=== PATIENT | female | born 1940 ===

== ENCOUNTER 2016-06-09 17:44 | Emergency (ER) | payer MEDICARE, MEDICAID ==
[2016-06-09 17:51] VITALS: BP 161/69; PULSE 73; RESP 16; TEMP 98; O2SAT 98
--- NOTE | 2016-06-09 18:23 | ED PDOC ---
HPI: General Adult Time Seen by Provider: 06/09/16 18:04 Chief Complaint (Nursing): Back Pain Chief Complaint (Provider): neck pain History Per: Patient History/Exam Limitations: no limitations Onset/Duration Of Symptoms: Days (x3) Current Symptoms Are (Timing): Still Present Severity: Mild Additional Complaint(s): Patient is a 76 year old female, who has a history of neck pain, presents to the ED complaining of neck pain x3 days. Patient reports pain begins at the midline then radiates to chest and is associated with headache. Patient feels stiff and took Tylenol 500 mg today with mild relief. Denies injury. Patient went to physical therapy for her neck 2 months ago. Denies numbness or tingling. 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), HTN, Hypercholesterolemia - Surgical History Surgical History: Cholecystectomy - Family History Family History: States: No Known Family Hx - Home Medications Home Medications: Ambulatory Orders Medication Instructions Recorded ALPRAZolam [Xanax] 0.5 mg PO TID 05/30/15 Aspirin [Ecotrin] 81 mg PO DAILY 05/30/15 Chlorthalidone [Hygroton] 25 mg PO DAILY 05/30/15 Ergocalciferol (Vitamin D2) 50,000 iu PO DAILY 05/30/15 [Vitamin D] Meclizine [Meclizine*] 25 mg PO Q12 PRN #10 tab 05/30/15 Metoprolol Succinate [Toprol XL] 50 mg PO DAILY 05/30/15 Valsartan [Diovan] 320 mg PO DAILY 05/30/15 Cyclobenzaprine [Cyclobenzaprine 10 mg PO BID #14 tab 06/09/16 HCl] - Allergies Allergies/Adverse Reactions: Allergies Allergy/AdvReac Type Severity Reaction Status Date / Time Iodine and Iodide Containing Allergy RASH Verified 06/09/16 17:48 Produc Review of Systems ROS Statement: Except As Marked, All Systems Reviewed And Found Negative Constitutional: Negative for: Fever Musculoskeletal: Positive for: Neck Pain Neurological: Positive for: Headache Physical Exam - Reviewed Nursing Documentation Reviewed: Yes Vital Signs Reviewed: Yes - Physical Exam Appears: Positive for: Well, Non-toxic, No Acute Distress Head Exam: Positive for: ATRAUMATIC, NORMAL INSPECTION, NORMOCEPHALIC Skin: Positive for: Normal Color, Warm, DRY Eye Exam: Positive for: Normal appearance, EOMI Neck: Positive for: Normal, Decreased ROM (secondary to pain). Negative for: Painless ROM Cardiovascular/Chest: Positive for: Regular Rate, Rhythm. Negative for: Gallop , Murmur Respiratory: Positive for: Normal Breath Sounds. Negative for: Accessory Muscle Use, Rhonchi, Respiratory Distress Back: Positive for: Muscle Spasm (to the STM bilaterally). Negative for: Vertebral Tenderness (no c-spine) Extremity: Positive for: Normal ROM Neurologic/Psych: Positive for: Alert, Oriented - ECG O2 Sat by Pulse Oximetry: 98 (RA) Pulse Ox Interpretation: Normal Medical Decision Making Medical Decision Making: Time: 18:05 Impression: chronic pain Plan: toradol 30 mg IM pt given flexril in ED advised to have pmd f.u use warm compress to neck improved in ED advised to use motrin and return to PTX Scribe Attestation: Documented by Jemma Javier acting as a scribe for REBECCA Gallego. Provider Attestation: All medical record entries made by the Scribe were at my direction and personally dictated by me. I have reviewed the chart and agree that the record accurately reflects my personal performance of the history, physical exam, medical decision making, and the department course for this patient. I have also personally directed, reviewed, and agree with the discharge instructions and disposition. Disposition - Clinical Impression Clinical Impression: Neck pain - Patient ED Disposition Is Patient to be Admitted: No Counseled Patient/Family Regarding: Need For Followup - Disposition Disposition: Routine/Home Disposition Time: 19:25 Condition: STABLE Prescriptions: Cyclobenzaprine [Cyclobenzaprine HCl] 10 mg PO BID #14 tab Instructions: Muscle Spasm (ED) Print Language: [id number]
== END 2016-06-09 19:34 | disposition home or self-care (01) ==
LOC: H.ER 17:44
DX: M54.2 Cervicalgia (principal); E78.00 Pure hypercholesterolemia, unspecified; J45.909 Unspecified asthma, uncomplicated; Z79.82 Long term (current) use of aspirin; Z86.73 Personal history of transient ischemic attack (TIA), and cerebral infarction without residual deficits; I10 Essential (primary) hypertension
CPT/HCPCS: 96372; 99282; J1885